=== PATIENT | female | born 1970 | race Caucasian/White ===

== ENCOUNTER 2021-07-10 13:15 | Inpatient (IN) | payer BC, MEDICARE ==
[2021-07-10] VITALS (190 sets, daily range): BP systolic 102–117; BP diastolic 73–74; PULSE 136–139; TEMP 97.8–98.7; O2SAT 74–92
[~2021-07-10] VITALS: Ht 172.7 cm; Wt 135.9 kg
[2021-07-10 17:27] LABS: ARTERIAL BLD GAS O2 SATURATION 82.6 % (92-100); ARTERIAL BLD GAS TCO2 CT 34.5; ARTERIAL BLOOD GAS BASE EXCESS 0.4 (-2-2); ARTERIAL BLOOD GAS HCO3 31.8 meq/L (22-26); ARTERIAL BLOOD GAS PO2 54.6 mmHg (80-100)
[2021-07-10 17:28] LABS: ARTERIAL BLOOD GAS PCO2 88.8 mmHg (35-45); ARTERIAL BLOOD GAS pH 7.17 (7.35-7.45)
--- NOTE | 2021-07-10 17:30 | NUR ---
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 She is intubated and sedated. ji catheter and orogastric tube in place. ETT measures at 23 at the teeth. Patient hooked up to our ventilator and restrained with soft wrist restraints. assessment completed and documented. Dr. meneses and dr. tijerina notified of arrival. ABG drawn, Chest XR ordered and called.
--- NOTE | 2021-07-10 18:05 | NUR ---
Patient SP02 is 72% at this time. Patient CXR completed and she is placed in prone position.
--- NOTE | 2021-07-10 18:30 | NUR ---
Dr. Medina updates via the phone.
--- NOTE | 2021-07-10 18:30 | NUR ---
Received report from ZACKARY Pederson. All medications verified and all questions answered. Patient in prone position facing right. Intubated and sedated with vent settings at 100% FiO2, peep of 20, RR of 28 and TV of 400 on assisst control mode. Fentanyl gtt running at 20mcg/hr and propofol gtt running at 20mcg/kg/min. VSS. MINE Mcdaniel, at bedside at 1855 placing art line in left radial artery. Art line placed at 1919. This RN will resume care of patient at this time.
[2021-07-10 18:46] LABS: COLLECTION METHOD CATHETER
[2021-07-10 18:59] LABS: MUCOUS Present /lpf; PH 5 (5-8); URINE APPEARANCE Cloudy; URINE BACTERIA Many /hpf; URINE BILIRUBIN Negative (NEGATIVE); URINE BLOOD Negative (NEGATIVE); URINE COLOR Amber; URINE GLUCOSE 1+ (NEGATIVE); URINE KETONE Negative (NEGATIVE); URINE LEUKOCYTE ESTERASE Negative (NEGATIVE); URINE NITRATE Positive (NEGATIVE); URINE PROTEIN(semi-quant) 2+ (NEGATIVE); URINE UROBILINOGEN >=4.0 mg/dL (NEGATIVE)
[2021-07-10 19:00] LABS: GASTROCCULT POSITIVE; pH GASTRIC CONTENTS 2
[2021-07-10] MEDS ORDERED: DINO-LIFE1 CTB PO (19:01)
[2021-07-10] MEDS ORDERED: ULTRAM 50MG TAB50 MG PO (19:01)
[2021-07-10] MEDS ORDERED: BLACK COHOSH40 MG PO (19:01)
[2021-07-10] MEDS ORDERED: ZYLOPRIM 100MG100 MG PO (19:02)
[2021-07-10] MEDS ORDERED: DAYPRO 600600 MG PO (19:02)
[2021-07-10] MEDS ORDERED: LIORESAL 1010 MG/TAB PO (19:03)
[2021-07-10] MEDS ORDERED: NEURONTIN100 MG/CAP PO (19:03)
[2021-07-10] MEDS ORDERED: TEGRETOL 1100 MG/TAB PO (19:03)
--- NOTE | 2021-07-10 19:30 | NUR ---
Report given to ZACKARY Shi. Vent settings reviewed. Lines and tubes reviewed. Patient in prone position and SPO2 90%. Art line being placed right now by MINE Mcdaniel.
--- NOTE | 2021-07-10 19:45 | NUR ---
This RN spoke with RT Acosta about critical ABG results. RT stated they relayed ABG results to KUMAR.
[2021-07-10 20:05] LABS: ARTERIAL BLD GAS O2 SATURATION 90.6 % (92-100); ARTERIAL BLD GAS TCO2 CT 30.9; ARTERIAL BLOOD GAS BASE EXCESS -2.3 (-2-2); ARTERIAL BLOOD GAS HCO3 28.4 meq/L (22-26); ARTERIAL BLOOD GAS PO2 69.3 mmHg (80-100)
[2021-07-10 20:06] LABS: ARTERIAL BLOOD GAS PCO2 79.9 mmHg (35-45); ARTERIAL BLOOD GAS pH 7.17 (7.35-7.45)
[2021-07-10 20:10] LABS: HEMATOCRIT 42.5 % (37.0-47.0); HEMOGLOBIN 13.5 g/dl (12.5-16.0); MEAN CELL VOLUME 92 fl (80.0-100.0); MEAN CORPUSCULAR HEMOGLOBIN 29 pg (27.0-31.0); MEAN CORPUSCULAR HGB CONC 32 g/dl (33.0-37.0); MEAN PLATELET VOLUME 9.5 fl (7.4-10.4); PLATELET COUNT 214 K/mm3 (130-400); RED BLOOD COUNT 4.62 M/mm3 (4.10-5.30); REDCELL DISTRIBUTION WIDTH-CV 14.6 % (11.5-14.5)
[2021-07-10 20:34] LABS: ALANINE AMINOTRANSFERASE 45 U/L (0-55); ALBUMIN 2.1 gm/dL (3.5-5.0); ALKALINE PHOSPHATASE 124 U/L (40-150); ANION GAP 15 mmol/L (7-16); AST,SGOT 43 U/L (5-34); BILIRUBIN,TOTAL 1.5 mg/dL (0.2-1.2); BLOOD UREA NITROGEN 22 mg/dL (10-20); CALCIUM 8.7 mg/dL (8.4-10.2); CARBON DIOXIDE 24 mmol/L (22-29); CHLORIDE 106 mmol/L (98-107); CREATININE, serum 1.04 mg/dL (0.57-1.11); GLUCOSE 175 mg/dL (70-99); POTASSIUM 4.2 mmol/L (3.5-4.5); SODIUM 145 mmol/L (136-145); TOTAL PROTEIN 7.2 gm/dL (6.2-8.1)
[2021-07-10 20:43] LABS: BAND 10 % (0-10); LYMPHOCYTE 1 % (20.0-51.0); NEUTROPHILS 86 % (42.0-75.2); TROPONIN-I 0.094 ng/mL (0.00-0.033)
[2021-07-10 20:45] LABS: HYPOCHROMIA 2+; PLATELET ESTIMATE NORMAL (NORMAL)
[2021-07-10 20:46] LABS: C-REACTIVE PROTEIN > 32.00 mg/dL (0.00-0.50)
[2021-07-11] VITALS (660 sets, daily range): BP systolic 100–124; BP diastolic 54–84; PULSE 128–151; TEMP 99.1–103; O2SAT 77–98
--- NOTE | 2021-07-11 01:14 | NUR ---
Physician not notified of critical troponin level of 0.097 d/t value trending done.
[2021-07-11 04:30] LABS: HEMATOCRIT 37.9 % (37.0-47.0); HEMOGLOBIN 12.6 g/dl (12.5-16.0); MEAN CELL VOLUME 88 fl (80.0-100.0); MEAN CORPUSCULAR HEMOGLOBIN 29 pg (27.0-31.0); MEAN CORPUSCULAR HGB CONC 33 g/dl (33.0-37.0); MEAN PLATELET VOLUME 9.7 fl (7.4-10.4); PLATELET COUNT 172 K/mm3 (130-400); RED BLOOD COUNT 4.32 M/mm3 (4.10-5.30); REDCELL DISTRIBUTION WIDTH-CV 14.3 % (11.5-14.5)
--- NOTE | 2021-07-11 04:38 | NUR ---
Physician not notified of critical WBC level of 21.9 d/t lab trending down.
[2021-07-11 04:45] LABS: ALBUMIN 1.9 gm/dL (3.5-5.0); CALCIUM 8.4 mg/dL (8.4-10.2); CREATININE, serum 1.01 mg/dL (0.57-1.11); MAGNESIUM 2.6 mg/dL (1.6-2.6); POTASSIUM 3.8 mmol/L (3.5-4.5); TOTAL PROTEIN 6.6 gm/dL (6.2-8.1)
--- NOTE | 2021-07-11 05:17 | NUR ---
Sedation vacation not attempted d/t patient being proned. VSS at this time.
[2021-07-11 05:29] LABS: BAND 51 % (0-10); METAMYELOCYTE 1 % (0-0); NEUTROPHILS 44 % (42.0-75.2); PLATELET ESTIMATE NORMAL (NORMAL); SCHISTOCYTES 1+
[2021-07-11 05:46] LABS: ARTERIAL BLD GAS O2 SATURATION 96.5 % (92-100); ARTERIAL BLD GAS TCO2 CT 31.2; ARTERIAL BLOOD GAS BASE EXCESS 3.3 (-2-2); ARTERIAL BLOOD GAS HCO3 29.6 meq/L (22-26); ARTERIAL BLOOD GAS PO2 83.9 mmHg (80-100); ARTERIAL BLOOD GAS pH 7.37 (7.35-7.45)
--- NOTE | 2021-07-11 09:48 | NUR ---
Patient currently intubated. Phone call made to patient's Sandra Yan". Patient and live in their home in [place], [place]. States that prior to this the patient was fully independent with her ADL's and did not utilize any DME within the home. Patient did receive "something" that delivered O2 when the patient first got sick but was not on it prior and is unsure of what the actual name is. states that the patient's PCP is Dr. Krishnan in [place], [place] and they use [facility] in [place] with no cost difficulty. states that the patient does not have a DPOA-HC established. Educated Demetrio on the parameters of a legal NOK and that in the case of decision making, those decisions would fall to Demetrio. Demetrio verbalizes his agreement to this. is currently in town, however is not planning on coming to the hospital unless needed. states that he would like a phone call from the hospitalist. Dr. Medina notified.
--- NOTE | 2021-07-11 18:30 | NUR ---
Received report from ZACKARY Aranda. All medications verified and all questions answered. Patient intubted and sedated laying in prone position facing right. Propofol running at 24.5mls/hr and fentanyl running at 3.8mls/hr. Vent settings at 100% fiO2, 20 peep, 450 TV with a rate of 26. Patient in airborne/contact precautions d/t positive covid result. Will resume care of patient at this time.
--- NOTE | 2021-07-11 19:25 | NUR ---
RT UNABLE, AT THIS TIME DUE TO PRONE POSITIONING, TO PERFORM PROPER ORAL CARE AND SUCTION. ET TUBE WAS SUCTIONED.
--- NOTE | 2021-07-11 21:00 | NUR ---
SEDATION VACATION NOT PERFORMED TODAY, PATIENT APPEARED RESTLESS THIS MORNING AND SEDATION WAS INCREASED. THE DAY WENT ON, PATIENT'S HEARTRATE REMAINED ELEVATED; INCREASED FENTANYL AND SEDATION TO SEE IF HER INCREASED HEARTRATE WAS DUE TO PAIN AND/OR BEING UNDERSEDATED.
--- NOTE | 2021-07-11 23:07 | NUR ---
CANNOT PERFORM ORAL CARE WHILE PATIENT IS PRONE; CANNOT ACCESS ORAL CAVITY
--- NOTE | 2021-07-11 23:33 | NUR ---
Unable to screen for suicide risk d/t patient being intubated and sedated
[2021-07-12] VITALS (621 sets, daily range): BP systolic 87–125; BP diastolic 60–80; PULSE 124–146; TEMP 98.8–102.2; O2SAT 85–95
[2021-07-12 04:23] LABS: BASO % 0.1 % (0.0-2.0); EOS % 0.1 % (0-4.0); GRAN # 29.1 K/mm3 (1.4-6.5); GRAN % 90.1 % (42.2-75.2); HEMATOCRIT 41.8 % (37.0-47.0); HEMOGLOBIN 13.1 g/dl (12.5-16.0); LYMPH # 0.8 K/mm3 (1.2-3.4); LYMPH % 2.3 % (20.0-51.0); MEAN CORPUSCULAR HEMOGLOBIN 29 pg (27.0-31.0); MEAN CORPUSCULAR HGB CONC 31 g/dl (33.0-37.0); MEAN PLATELET VOLUME 9.6 fl (7.4-10.4); MONO % 3.2 % (1.7-9.3); PLATELET COUNT 194 K/mm3 (130-400); RED BLOOD COUNT 4.48 M/mm3 (4.10-5.30); REDCELL DISTRIBUTION WIDTH-CV 14.8 % (11.5-14.5)
[2021-07-12 04:38] LABS: MEAN CELL VOLUME 93 fl (80.0-100.0)
[2021-07-12 04:43] LABS: ALBUMIN 2.1 gm/dL (3.5-5.0); BILIRUBIN,TOTAL 0.6 mg/dL (0.2-1.2); CALCIUM 8.3 mg/dL (8.4-10.2); CREATININE, serum 1.53 mg/dL (0.57-1.11); MAGNESIUM 3.4 mg/dL (1.6-2.6); POTASSIUM 4.7 mmol/L (3.5-4.5); TOTAL PROTEIN 6.8 gm/dL (6.2-8.1)
--- NOTE | 2021-07-12 05:06 | NUR ---
Sedation vacation not attempted d/t patient being in proned position.
--- NOTE | 2021-07-12 05:51 | NUR ---
Vancomycin Initial Dosing Pharmacy Note Ordering provider: Brennan Medina MD Indication/duration: PNA X 7 days. Relevant comorbidities: COVID + LABS: WBC = 32.3, SCr = 1.53, Tmax = 103F Recommendation: Will draw troughs and follow levels. Loading dose: 2 grams Maintenance dose: 1 gram every 12 hours Trough goal: 15-20 ug/mL
--- NOTE | 2021-07-12 05:54 | NUR ---
Patient un-proned d/t increased peak pressures on ventilator and possible positional cuff leak. VSS post un-proning. Ventilator settings remain at 100% fio2, 26 rr, 20 peep and 450 tidal volume with peak pressures in the 30s.
[2021-07-12 06:26] LABS: ARTERIAL BLD GAS TCO2 CT 34.8; ARTERIAL BLOOD GAS BASE EXCESS 0.7 (-2-2); ARTERIAL BLOOD GAS PO2 68.4 mmHg (80-100)
[2021-07-12 06:27] LABS: ARTERIAL BLOOD GAS PCO2 91.5 mmHg (35-45); ARTERIAL BLOOD GAS pH 7.16 (7.35-7.45)
--- NOTE | 2021-07-12 08:00 | NUR ---
RESUMED OG FEEDING, RESIDUAL WAS 10 ML. WILL INCREASE TOLERATED.
--- NOTE | 2021-07-12 08:00 | NUR ---
DURING MORNING ASSESSMENT MISS RUTLEDGE WILL NOT RESPOND TO VOICE, TOUCH, OR PAIN.
--- NOTE | 2021-07-12 12:00 | NUR ---
TOOK THE PT TO CT WITH FELIX RT, BRENDA RAYMUNDO, AND ASSISTANCE FROM ED.
[2021-07-12 15:53] LABS: ARTERIAL BLD GAS O2 SATURATION 92.5 % (92-100); ARTERIAL BLD GAS TCO2 CT 31.4; ARTERIAL BLOOD GAS HCO3 29.1 meq/L (22-26); ARTERIAL BLOOD GAS PO2 70.8 mmHg (80-100)
--- NOTE | 2021-07-12 16:00 | NUR ---
PER DR. ECRDA, MRS. CHISHOLM RECIEVED A RIGHT RADIAL ART LINE, LEFT ART LINE WAS REMOVED. PRESSURE DRESSING PLACED.
--- NOTE | 2021-07-12 18:25 | NUR ---
DR CERDA AT BEDSIDE, WOULD LIKE TO INCREASE SEDATION.
[2021-07-13] VITALS (647 sets, daily range): BP systolic 50–113; BP diastolic 30–92; PULSE 50–154; TEMP 101.7–103.1; O2SAT 37–99
[2021-07-13 03:53] LABS: ARTERIAL BLD GAS O2 SATURATION 89.6 % (92-100); ARTERIAL BLD GAS TCO2 CT 35.9; ARTERIAL BLOOD GAS BASE EXCESS 4.3 (-2-2); ARTERIAL BLOOD GAS HCO3 33.6 meq/L (22-26); ARTERIAL BLOOD GAS PO2 59.6 mmHg (80-100); ARTERIAL BLOOD GAS pH 7.27 (7.35-7.45)
[2021-07-13 03:55] LABS: ARTERIAL BLOOD GAS PCO2 75.5 mmHg (35-45)
[2021-07-13 05:09] LABS: BASO % 0.1 % (0.0-2.0); EOS % 0.1 % (0-4.0); GRAN # 31.6 K/mm3 (1.4-6.5); GRAN % 85.5 % (42.2-75.2); HEMATOCRIT 40.5 % (37.0-47.0); HEMOGLOBIN 12.6 g/dl (12.5-16.0); LYMPH # 1.1 K/mm3 (1.2-3.4); MEAN CELL VOLUME 96 fl (80.0-100.0); MEAN CORPUSCULAR HEMOGLOBIN 30 pg (27.0-31.0); MEAN CORPUSCULAR HGB CONC 31 g/dl (33.0-37.0); MEAN PLATELET VOLUME 10.2 fl (7.4-10.4); MONO # 1.1 K/mm3 (0.1-0.6); MONO % 3.1 % (1.7-9.3); PLATELET COUNT 194 K/mm3 (130-400); RED BLOOD COUNT 4.24 M/mm3 (4.10-5.30); REDCELL DISTRIBUTION WIDTH-CV 14.6 % (11.5-14.5)
[2021-07-13 06:07] LABS: ALBUMIN 2.2 gm/dL (3.5-5.0); BILIRUBIN,TOTAL 0.6 mg/dL (0.2-1.2); CALCIUM 7.7 mg/dL (8.4-10.2); CREATININE, serum 1.62 mg/dL (0.57-1.11); MAGNESIUM 3.4 mg/dL (1.6-2.6); POTASSIUM 4.8 mmol/L (3.5-4.5); TOTAL PROTEIN 6.4 gm/dL (6.2-8.1)
--- NOTE | 2021-07-13 06:34 | NUR ---
PT HR STEADILY INCREASED TO 154 BPM AND IS HOLDING AT 150-152. GABY CHAMBERS NOTIFIED OF HR. 2.5 MG OF LOPRESSER AND 250 ML NS BOLUS ORDERED. INITIALLY HR RESPONDED AND WAS LOWERED TO 130 BPM BUT BECAME HYPOTENSIVE, BP WAS 76/56(61). LEVOPHED WAS STARTED AT 0.1 MCG/KG/MIN BUT WAS TIRATED OFF WHEN BP IMPROVED. PT O2 SATS HAVE DROPPED AND ARE MAINTAINING AT 87-88%. RT NOTIFIED AND VENT CHANGES MADE. PT REMAINS ON 18 OF PEEP, 100% FIO2, TV 500. PEEK PRESSURES HAVE STAYED BETWEEN 32-38. GABY CHAMBERS NOTIFIED OF ALL EVENTS AND LABS. SEE MAR/EMAR FOR OTHER DETAILS.
--- NOTE | 2021-07-13 09:00 | NUR ---
ETT EXCHANGED FOR NEW ETT DUE TO CUFF LEAK. PROCEDURE DONE BY . [place] ETT [place] PLACED ON PT. TUBE SECURED AND PATIENT STABILIZED.
[2021-07-13 12:02] LABS: ARTERIAL BLD GAS TCO2 CT 36.1; ARTERIAL BLOOD GAS BASE EXCESS 2.5 (-2-2); ARTERIAL BLOOD GAS HCO3 33.3 meq/L (22-26); ARTERIAL BLOOD GAS PO2 49.8 mmHg (80-100)
[2021-07-13 12:03] LABS: ARTERIAL BLOOD GAS PCO2 88.7 mmHg (35-45); ARTERIAL BLOOD GAS pH 7.19 (7.35-7.45)
--- NOTE | 2021-07-13 15:00 | NUR ---
CALLED TO INFORM HIM OF THE PTS CRITICAL STATUS. PATIENT STATED THAT HE HAD A COVID TEST THIS AFTERNOON BUT HAS YET TO RECIEVE THE RESULTS. AFTER TALKING TO DR. ANDRADE, AND THE TECHNICAL SUPPORT 1 SOFTWARE ENGINEER PETER, THE WAS ABLE TO COME BEDSIDE. JOSE STAYED SHORTLY AND WAS ABLE TO MEET WITH DR. ANDRADE ON CARE OF THE PATIENT. HE STATED HE WANTED US TO CONTINUE OUR CARE TO ALLOW HER KIDS THAT LIVE IN [place] TIME TO HEAD TO THE FACILITY. JOSE THEN LEFT, I RECIEVED A CALL ABOUT AN HOUR LATER STATING THAT HIS COVID RESULTS HAVE COME BACK AT THAT THEY WERE POSITIVE. I TOLD JOSE, THAT HE CANNOT COME BACK UP TO SEE MRS. CHISHOLM FOR VISIT UNLESS HE WITHDRAWLS CARE AND THEN HE IS ABLE TO BE BEDSIDE.
--- NOTE | 2021-07-13 17:30 | NUR ---
AT THIS TIME DR. ANDRADE HAS BEEN NOTIFIED OF MRS. RESTREPO PASSING. AT 1726 THE PATIENT HAD A SUDDEN DROP IN HEART RATE AND BLOOD PRESSURE. AT 172 THE PATIENT WENT INTO ASYSTOLE. THE WAS CALLED AND HE WAS ABLE TO COME BEDSIDE. THE [employer] [facility] WAS CALLED IN PER HUSBANDS REQUEST.
--- NOTE | 2021-07-13 18:51 | NUR ---
AT 0830 THIS NURSE WAS NOTIFIED BY RADIOLOGIST RAJ THAT THE PTS ETT IS AT THE LEVEL OF THE VOCAL CORDS AND AT RISK OF EXTUBATION. RT FELIX WAS CALLED, AND DURING THE ASSESSMENT THE PATIENT STARTED TO NOT BE ABLE TO PULL A TIDAL VOLUME GREATER THAN 150. AT THIS TIME THE PATIENT WAS BAGGED AND THE ER PHYSICIAN WAS CALLED TO DO A ETT CHANGE DUE TO A POSSIBLE CUFF LEAK. AT 0845 THE TUBE WAS EXCHANGED, DURING THIS THE PATIENTS BLOOD PRESSURE DROPPED TO 30/50 AND HEART RATE FROM THE 150S TO 50 BPM. LEVOPHED WAS STARTED AND THE PATIENT RECOVERED QUICKLY IN BLOOD PRESSURE AND HEART RATE. THE ETT IS A 7.5 27 AT TEETH. ETT CO2 HAD POSITIVE COLOR CHANGE. XRAY SHOWED PROPER PLACEMENT. WILL CONTINUE TO MONITOR
--- NOTE | 2021-07-14 08:30 | NUR ---
AT 0830 THIS NURSE WAS NOTIFIED BY RADIOLOGIST RAJ THAT PTS ETT IS AT THE LEVEL OF THE VOCAL CORDS AND AT RISK OF SELF EXTUBATION. RT FELIX WAS CALLED, AND DURING ASSESSMENT THE PATIENT STARTED TO HAVE POOR TIDAL VALUE, NO GREATER THAN 150. AT THIS TIME FELIX RT STARTED TO BAG AND THE ER PHYSICIAN WAS CALLED TO DO AN EMERGENT ETT EXCHANGE DUE TO POSSIBLE CUFF LEAK. DURING THE TUBE EXCHANGE THE PATIENTS BLOOD PRESSURE DROPPED TO 30/50 AND HEART RATE FROM THE 150S TO 50 BPM. LEVOPHED WAS STARTED AND THE PATIENT RECOVERED QUICKLY IN BLOOD PRESSURE AND HEART RATE. THE ETT HAD A CUFF TEAR. THE NEW ETT IS A 7.5 27 AT THE TEETH. ETT CO2 HAD POSTIVE COLOR CHANGE. XRAY SHOWED PROPER PLACEMENT. WILL CONTINUE TO MONITOR.
== END 2021-07-13 20:30 | disposition expired | DRG 208 ==
LOC: ICU 13:15
PROVIDERS: Internal Medicine Pulmonary Disease; ADMIT Internal Medicine
PROC: 5A1945Z Respiratory Ventilation, 24-96 Consecutive Hours (ICD-10-PCS; principal; 2021-07-10)
PROC: XW033E5 Introduction of Remdesivir Anti-infective into Peripheral Vein, Percutaneous Approach, New Technology Group 5 (ICD-10-PCS; 2021-07-10)
PROC: 02HV33Z Insertion of Infusion Device into Superior Vena Cava, Percutaneous Approach (ICD-10-PCS; 2021-07-11)
DX: U07.1 COVID-19 (principal); J12.82 Pneumonia due to coronavirus disease 2019; J13 Pneumonia due to Streptococcus pneumoniae; J96.22 Acute and chronic respiratory failure with hypercapnia; J96.21 Acute and chronic respiratory failure with hypoxia; I21.A1 Myocardial infarction type 2; N17.9 Acute kidney failure, unspecified; Z68.42 Body mass index [BMI] 45.0-49.9, adult; G89.29 Other chronic pain; M54.9 Dorsalgia, unspecified; E66.01 Morbid (severe) obesity due to excess calories; M19.90 Unspecified osteoarthritis, unspecified site; E87.6 Hypokalemia; R73.9 Hyperglycemia, unspecified; T38.0X5A Adverse effect of glucocorticoids and synthetic analogues, initial encounter; I46.9 Cardiac arrest, cause unspecified; K29.70 Gastritis, unspecified, without bleeding; Z73.0 Burn-out
CPT/HCPCS: 99233-AI; 99239; C1751; C9113; J0696; J1100; J1450; J1644; J1815; J2543; J2704; J3010; J3370; J7030; J7040; J7050; J7060; J7120; Q0249